=== PATIENT | female | born 1965 | race Caucasian/White ===

== ENCOUNTER 2017-01-22 00:44 | Inpatient (IN) | payer MEDICAID ==
[2017-01-22 00:44] VITALS: BMI 20.7
[2017-01-22 01:16] VITALS: PULSE 85; RESP 18; O2SAT 99
[2017-01-22] MEDS ORDERED: Alum-Mag Hydrox-Simethicone Susp (30 mL) PO STA (01:23)
--- NOTE | 2017-01-22 01:25 | ED PDOC ---
Arrival/HPI - General Chief Complaint: Abdominal Pain Time Seen by Provider: 01/22/17 01:21 Historian: Patient - History of Present Illness Narrative History of Present Illness (Text): 01/22/17 01:21 Chantel Cooney is a 51 year old female, whose past medical history includes Leukemia, on gleevac and small bowel obstruction, who presents to the emergency department complaining of generalized nausea, vomiting, and diarrhea for one day. Patient states that she took pepcid to little relief and experiences associated fatigue. Patient denies any urinary symptoms or any other complaints at this time. 01/22/17 05:19 Time/Duration: 24 hours Symptom Onset: Gradual Activities at Onset: Light Context: Home Past Medical History - Provider Review Nursing Documentation Reviewed: Yes - Cardiac Hx Cardiac Disorders: No - Pulmonary Hx Respiratory Disorders: No - Neurological Hx Neurological Disorder: No - HEENT Hx Glaucoma: Yes (bilateral eyes) - Renal Hx Renal Disorder: No - Endocrine/Metabolic Hx Endocrine Disorders: No - Hematological/Oncological Hx Leukemia: Yes - Integumentary Hx Dermatological Disorder: No - Musculoskeletal/Rheumatological Hx Musculoskeletal Disorders: No Hx Falls: No - Gastrointestinal Other/Comment: Small Bowel obstruction - Genitourinary/Gynecological Hx Genitourinary Disorders: No - Psychiatric Hx Psychophysiologic Disorder: No Hx Substance Use: No - Surgical History Hx Breast Biopsy: Yes Hx Hysterectomy: Yes Other/Comment: fibroid uterus , bilateral breast cyst removed, benign - Anesthesia Hx Anesthesia: No Hx Anesthesia Reactions: No Family/Social History - Physician Review Nursing Documentation Reviewed: Yes Family/Social History: No Known Family HX Smoking Status: Never Smoked Hx Alcohol Use: No Hx Substance Use: No Allergies/Home Meds Allergies/Adverse Reactions: Allergies No Known Allergies Allergy (Verified 01/22/17 00:55) Home Medications: Home Meds Medication Instructions Recorded Confirmed Gleevec 400 mg PO DAILY 01/22/17 01/22/17 Review of Systems - Review of Systems Constitutional: absent: Fevers, Night Sweats Eyes: absent: Vision Changes ENT: absent: Hearing Changes Respiratory: absent: SOB, Cough Cardiovascular: absent: Chest Pain Gastrointestinal: Diarrhea, Nausea (generalized), Vomiting Genitourinary Female: absent: Dysuria, Urine Output Changes Musculoskeletal: absent: Arthralgias Skin: absent: Rash, Pruritis Neurological: absent: Headache, Dizziness Endocrine: absent: Diaphoresis Hemo/Lymphatic: absent: Adenopathy Physical Exam Vital Signs Temp Pulse Resp BP Pulse Ox 01/22/17 01:16 85 18 122/77 99 01/22/17 00:56 98.0 F Temperature: Afebrile - Systems Exam Head: Present: Atraumatic, Normocephalic Pupils: Present: PERRL Extroacular Muscles: Present: EOMI Conjunctiva: Present: Normal Mouth: Present: Moist Mucous Membranes Neck: Present: Normal Range of Motion Respiratory/Chest: Present: Clear to Auscultation, Good Air Exchange. No: Respiratory Distress, Accessory Muscle Use Cardiovascular: Present: Regular Rate and Rhythm, Normal S1, S2. No: Murmurs Abdomen: Present: Tenderness (Generalized abdominal pain) Back: Present: Normal Inspection Upper Extremity: Present: Normal Inspection. No: Cyanosis, Edema Lower Extremity: Present: Normal Inspection. No: Edema Neurological: Present: GCS=15, CN II-XII Intact, Speech Normal Skin: Present: Warm, Dry, Normal Color. No: Rashes Psychiatric: Present: Alert, Oriented x 3, Normal Insight, Normal Concentration Medical Decision Making ED Course and Treatment: 01/22/17 01:26 Impression: 51 year old female complaining of generalized nausea, vomiting, and diarrhea for one day. Differential Diagnosis included but are not limited to: Plan: -- Abdomen and Pelvis with IV Contrast -- Urinalysis -- Labs -- Pepcid and Maalox -- Reassess and disposition Prior Visits: Notes and results from previous visits were reviewed. Patient last seen in the ED on 03/26/15 for abdominal pain. Patient eloped from the emergency department. Progress Notes: EKG shows NSR at 86 BPM with PACs. No acute ST changes. Interpreted by me. Labs grossly normal. 01/22/17 05:17 CT Abdomen and Pelvis With Intravenous Contrast: Dictated and Authenticated by: Urszula Marques MD FINDINGS: The liver is normal. The spleen is normal. The pancreas is normal. No gallstones. Hypoattenuating renal lesions too small to accurately characterize There is perisplenic fluid.There is free fluid in the pelvis greater than normal physiologic amount. There is free fluid in the anterior upper left pelvis. There are multiple fluid-filled dilated small bowel loops clustered in the midabdomen and pelvis extending slightly more to the left of midline. There are nondilated loops both proximally and distally. The dilated loops measures up to 3 cm in diameter and some demonstrate prominent wall and fold enhancement. There is stranding in the mesentery adjacent to the dilated small bowel loops, some of which has a tethered appearance (please see coronal image 36 through 44). There is questionable slight swirling of the mesenteric vessels axial images 90 - 110 midabdomen where there are numerous small mesenteric lymph nodes as well. A single clear-cut abrupt transition is not identified however there is change in small bowel caliber in the right lateral abdomen images 100 through 115 and also in the upper mid pelvis 100 through 117. A normal appendix is identified coronal images 51 through 59, axial series 2 images 87- 115. IMPRESSION: Dilated, fluid filled small bowel loops w nondilated loops proximally and distally. Findings supportive of small bowel obstruction, with additional findings of tethered mesentery and clustering of dilated loops raising concern for closed loop etiology. 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 Spoke to Dr. Ac. IVF infusing and reports pain improved. 01/22/17 05:36 - Lab Interpretations Lab Results: 01/22/17 02:50 01/22/17 02:50 Lab Results 01/22/17 02:50: Sodium 140, Potassium 4.9, Chloride 104, Carbon Dioxide 27, Anion Gap 14, BUN 10, Creatinine 0.9, Est GFR ( Amer) > 60, Est GFR (Non- Af Amer) > 60, Random Glucose 113 H, Calcium 9.5, Total Bilirubin 0.7, AST 34, ALT 39, Alkaline Phosphatase 53, Total Creatine Kinase 156, Troponin I 0.02, Total Protein 6.5, Albumin 4.2, Globulin 2.2, Albumin/Globulin Ratio 1.9 H, Lipase 215 01/22/17 02:50: WBC 7.6, RBC 4.05, Hgb 13.0, Hct 38.0, MCV 93.8, MCH 32.1, MCHC 34.2, RDW 13.0, Plt Count 183, MPV 8.7, Gran % 73.2 H, Lymph % (Auto) 21.2 L, [place] % (Auto) 5.0, Eos % (Auto) 0.5 L, Baso % (Auto) 0.1, Gran # 5.56, Lymph # 1.6, [place] # 0.4, Eos # 0.0, Baso # 0.01 I have reviewed the lab results: Yes - RAD Interpretation Radiology Orders: 01/22/17 01:22 ABD & PELVIS IV CONTRAST ONLY [CT] Stat - Medication Orders Current Medication Orders: Sodium Chloride (Sodium Chloride 0.9%) 1,000 mls @ 999 mls/hr IV .Q1H1M STA Stop: 01/22/17 06:20 Last Admin: 01/22/17 05:32 Dose: 999 mls/hr eMAR Start Stop Document 01/22/17 05:32 SC (Rec: 01/22/17 05:32 SC [id number]) Intravenous Solution Start Date 01/22/17 Start Time 05:32 End Date 01/22/17 End time 06:32 Total Infusion Time 60 Discontinued Medications Al Hydrox/Mg Hydrox/Simethicone (Maalox Plus 30 Ml) 30 ml PO STAT STA Stop: 01/22/17 01:24 Last Admin: 01/22/17 03:30 Dose: 30 ml Famotidine (Pepcid) 20 mg IVP STAT STA Stop: 01/22/17 01:24 Last Admin: 01/22/17 02:55 Dose: 20 mg IVP Administration Document 01/22/17 02:55 SC (Rec: 01/22/17 02:55 SC [id number]) Charges for Administration # of IVP Administrations 1 Sodium Chloride (Sodium Chloride 0.9%) 1,000 mls @ 999 mls/hr IV .Q1H1M STA Stop: 01/22/17 03:46 Last Admin: 01/22/17 02:54 Dose: 999 mls/hr eMAR Start Stop Document 01/22/17 02:54 SC (Rec: 01/22/17 02:54 SC [id number]) Intravenous Solution Start Date 01/22/17 Start Time 02:54 End Date 01/22/17 End time 03:55 Total Infusion Time 61 - Scribe Statement The provider has reviewed the documentation as recorded by the Mitaliibe Aimee Murdock Provider Scribe Attestation: All medical record entries made by the Scribe were at my direction and personally dictated by me. I have reviewed the chart and agree that the record accurately reflects my personal performance of the history, physical exam, medical decision making, and the department course for this patient. I have also personally directed, reviewed, and agree with the discharge instructions and disposition. Disposition/Present on Arrival - Present on Arrival Any Indicators Present on Arrival: No History of DVT/PE: No History of Uncontrolled Diabetes: No Urinary Catheter: No History of Decub. Ulcer: No History Surgical Site Infection Following: None - Disposition Have Diagnosis and Disposition been Completed?: Yes Diagnosis: Small bowel obstruction Disposition: HOSPITALIZED Disposition Time: 05:37 Patient Plan: Admission Condition: FAIR Forms: [employer] (Lao)
[2017-01-22] MEDS ORDERED: Sodium Chloride 0.9% 1,000 ML IV STA ×2 (02:46→05:20)
[2017-01-22 03:06] LABS: BASO # 0.01 K/mm3 (0.0-2.0); BASO % 0.1 % (0.0-3.0); EOS % 0.5 % (1.5-5.0); GRAN # 5.56 (1.4-6.5); GRAN % 73.2 % (50.0-68.0); LYMPH # 1.6 (1.2-3.4); LYMPH % 21.2 % (22.0-35.0); MEAN CELL VOLUME 93.8 fl (80.0-105.0); MEAN CORPUSCULAR HEMOGLOBIN 32.1 pg (25.0-35.0); MEAN CORPUSCULAR HGB CONC 34.2 g/dl (31.0-37.0); MEAN PLATELET VOLUME 8.7 fl (7.0-11.0); MONO # 0.4 (0.1-0.6); WHITE BLOOD COUNT 7.6 10^3/ul (4.5-11.0)
[2017-01-22 03:11] LABS: ALB/GLOB RATIO 1.9 (1.1-1.8); ALKALINE PHOSPHATASE 53 U/L (38-126); ALT/SGPT 39 U/L (7-56); AST/SGOT 34 U/L (14-36); BILIRUBIN,TOTAL 0.7 mg/dL (0.2-1.3); BLOOD UREA NITROGEN 10 mg/dL (7-21); CALCIUM 9.5 mg/dL (8.4-10.5); CARBON DIOXIDE 27 mmol/L (21-33); CHLORIDE 104 mmol/L (98-107); GFR AFRICAN-AMERICAN > 60; GLUCOSE,RANDOM 113 mg/dL (70-110); LIPASE 215 U/L (23-300); POTASSIUM 4.9 mmol/L (3.6-5.0); SODIUM 140 mmol/L (132-148); TOTAL PROTEIN 6.5 g/dL (5.8-8.3)
[2017-01-22] MEDS ORDERED: Iohexol 350 MG/100 ML VIAL ONE (03:17)
[2017-01-22 03:23] LABS: TROPONIN I 0.02 ng/mL
--- NOTE | 2017-01-22 05:10 | CT ---
EXAM: CT Abdomen and Pelvis With Intravenous Contrast EXAM DATE/TIME: 01/22/2017 1:22 AM CLINICAL HISTORY: 51 years old, female; Pain; Abdominal pain; Generalized TECHNIQUE: Axial computed tomography images of the abdomen and pelvis with intravenous contrast. All CT scans at this facility use one or more dose reduction techniques, viz.: automated exposure control; ma/kV adjustment per patient size (including targeted exams where dose is matched to indication; i.e. head); or iterative reconstruction technique. Coronal and sagittal reformatted images were created and reviewed. CONTRAST: 96 mL of OMNI 350 administered intravenously. COMPARISON: No relevant prior studies available. FINDINGS: The liver is normal. The spleen is normal. The pancreas is normal. No gallstones. Hypoattenuating renal lesions too small to accurately characterize. There is perisplenic fluid.There is free fluid in the pelvis greater than normal physiologic amount. There is free fluid in the anterior upper left pelvis. There are multiple fluid-filled dilated small bowel loops clustered in the midabdomen and pelvis extending slightly more to the left of midline. There are nondilated loops both proximally and distally. The dilated loops measures up to 3 cm in diameter and some demonstrate prominent wall and fold enhancement. There is stranding in the mesentery adjacent to the dilated small bowel loops, some of which has a tethered appearance (please see coronal image 36 through 44). There is questionable slight swirling of the mesenteric vessels axial images 90 - 110 midabdomen where there are numerous small mesenteric lymph nodes as well. A single clear-cut abrupt transition is not identified however there is change in small bowel caliber in the right lateral abdomen images 100 through 115 and also in the upper mid pelvis 100 through 117. A normal appendix is identified coronal images 51 through 59, axial series 2 images 87- 115. IMPRESSION: Dilated, fluid filled small bowel loops w nondilated loops proximally and distally. Findings supportive of small bowel obstruction, with additional findings of tethered mesentery and clustering of dilated loops raising concern for closed loop etiology.
[2017-01-22] MEDS ORDERED: Sodium Chloride 0.9% 100 ML IV SCH (06:45)
[2017-01-22] MEDS ORDERED: HYDROmorphone 0.5 mg/0.5 ml ISec IVP PRN (06:46)
--- NOTE | 2017-01-22 07:00 | CP.PCM.CON ---
History of Present Illness - History of Present Illness History of Present Illness: General Surgery- Dr. Angela 51F with past medical history of Leukemia (CML), hysterectomy presented to [facility] Emergency department for generalized abdominal pain that localized to the lower pelvis that started at 1600 on 01/21/17. Pain is described as intermittent and gas-like. She had one episode of non-bloody non- bilious vomiting after taking pepcid around midnight. She has tolerated drinking water. Last meal patient ate was plums and fruit for lunch yesterday. During encounter patient passed flatus and had a bowel movement, and currently states abdominal pain has resolved. Patient was admitted in 2014 for small bowel obstruction and was treated conservatively and was discharged home on antibiotics Denies: Fevers, Chills, Chest Pain, Shortness of breath, Nausea, diarrhea, headaches, numbness/tingling in extremities PMH: Leukemia PSH: Hysterectomy, Breast biopsy ALL: NKDA SocialHx:Denies ETOH, tobacco, or recreational drug use Meds: Gleevec Review of Systems - Review of Systems All systems: reviewed and no additional remarkable complaints except - Constitutional Constitutional: As Per HPI Past Patient History - Past Medical History & Family History Past Medical History?: Yes - Past Social History Smoking Status: Never Smoked - CARDIAC Hx Cardiac Disorders: No - PULMONARY Hx Respiratory Disorders: No - NEUROLOGICAL Hx Neurological Disorder: No - HEENT Hx Glaucoma: Yes (bilateral eyes) - RENAL Hx Chronic Kidney Disease: No - ENDOCRINE/METABOLIC Hx Endocrine Disorders: No - HEMATOLOGICAL/ONCOLOGICAL Hx Leukemia: Yes - INTEGUMENTARY Hx Dermatological Problems: No - MUSCULOSKELETAL/RHEUMATOLOGICAL Hx Musculoskeletal Disorders: No Hx Falls: No - GASTROINTESTINAL Other/Comment: Small Bowel obstruction - GENITOURINARY/GYNECOLOGICAL Hx Genitourinary Disorders: No - PSYCHIATRIC Hx Psychophysiologic Disorder: No Hx Substance Use: No - SURGICAL HISTORY Hx Breast Biopsy: Yes Hx Hysterectomy: Yes Other/Comment: fibroid uterus , bilateral breast cyst removed, benign - ANESTHESIA Hx Anesthesia: No Hx Anesthesia Reactions: No Meds Allergies/Adverse Reactions: Allergies Allergy/AdvReac Type Severity Reaction Status Date / Time No Known Allergies Allergy Verified 01/22/17 00:55 - Medications Medications: Current Medications Hydromorphone HCl (Dilaudid) 0.5 mg IVP Q4H PRN PRN Reason: Pain, severe (8-10) Sodium Chloride (Sodium Chloride 0.9%) 100 mls @ 100 mls/hr IV .Q1H CRYSTAL Ondansetron HCl (Zofran Inj) 4 mg IVP Q4 PRN PRN Reason: Nausea/Vomiting Physical Exam - Constitutional Appears: Non-toxic, No Acute Distress - Head Exam Head Exam: ATRAUMATIC - Eye Exam Eye Exam: EOMI. absent: Scleral icterus - ENT Exam ENT Exam: Mucous Membranes Moist - Respiratory Exam Respiratory Exam: NORMAL BREATHING PATTERN. absent: Accessory Muscle Use, Respiratory Distress - Cardiovascular Exam Cardiovascular Exam: +S1, +S2. absent: Bradycardia, Tachycardia - GI/Abdominal Exam GI & Abdominal Exam: Distended, Normal Bowel Sounds, Soft. absent: Firm, Guarding, Hernia, Tenderness - Extremities Exam Extremities exam: Positive for: normal inspection. Negative for: calf tenderness - Back Exam Back exam: absent: CVA tenderness (L), CVA tenderness (R) - Neurological Exam Neurological exam: Alert, Oriented x3 - Skin Skin Exam: Normal Color, Warm Results - Vital Signs Recent Vital Signs: Last Vital Signs Temp 98.0 F 01/22/17 00:56 Pulse 85 01/22/17 01:16 Resp 18 01/22/17 01:16 BP 122/77 01/22/17 01:16 Pulse Ox 99 01/22/17 01:16 - Labs Result Diagrams: 01/22/17 02:50 01/22/17 02:50 Assessment & Plan - Assessment and Plan (Free Text) Assessment: 51F pmhx CML and hysterectomy w/ abdominal pain, possible small bowel obstruction Plan: - will keep patient NPO - start on IVF - serial abdominal exams - if patient vomits will place an NGT - pain control - GI/DVT ppx - f/u labs - further recs per Dr. Julio César Cain PGY1
[2017-01-22] MEDS ORDERED: Sodium Chloride 0.9% 1,000 ML IV SCH (07:15)
[2017-01-22 07:54] VITALS: BP 131/86; TEMP 98.6
--- NOTE | 2017-01-22 11:07 | RAD ---
HISTORY: SBO COMPARISON: No prior. FINDINGS: BOWEL: Normal. No obstruction. No free air. BONES: Normal. OTHER FINDINGS: None. IMPRESSION: No active disease.
--- NOTE | 2017-01-22 11:29 | CP.PCM.HP ---
<Osiel Escalante - Last Filed: 01/22/17 11:25> History of Present Illness - History of Present Illness History of Present Illness: 51 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 Pt states the abdominal pain started earlier that day with no inciting event. Pt states the pain is described as crampy and diffuse. The pain is nonradiating. Pt reports no exacerbating or alleviating factors. Pt states she made soup for dinner which further upset her stomach. At that time, she took pepto-bismol which caused her to throw up. Emesis was nonbloody, nonbilious. Pt states she then came to the hospital. Pt had a bowel movement this morning and is passing gas. She does not currently have any pain. Pt did have an episode similar to this 1 year ago. She was admitted to the hospital and have had her diet slowly advanced, until she felt better. Denies CP, SOB, N/V/D, fever, chills, dysuria, constipation. PMH: CML PSH: 2 c-sections. Hysterectomy, Breast biopsy ALL: NKDA Social Hx:Denies ETOH, tobacco, or recreational drug use Meds: Gleevec Present on Admission - Present on Admission Any Indicators Present on Admission: No Review of Systems - Review of Systems Review of Systems: 12 point ROS as per HPI, otherwise negative. Past Patient History - Past Medical History & Family History Past Medical History?: Yes - Past Social History Smoking Status: Never Smoked - CARDIAC Hx Cardiac Disorders: No - PULMONARY Hx Respiratory Disorders: No - NEUROLOGICAL Hx Neurological Disorder: No - HEENT Hx Glaucoma: Yes (bilateral eyes) - RENAL Hx Chronic Kidney Disease: No - ENDOCRINE/METABOLIC Hx Endocrine Disorders: No - HEMATOLOGICAL/ONCOLOGICAL Hx Leukemia: Yes - INTEGUMENTARY Hx Dermatological Problems: No - MUSCULOSKELETAL/RHEUMATOLOGICAL Hx Musculoskeletal Disorders: No Hx Falls: No - GASTROINTESTINAL Other/Comment: Small Bowel obstruction - GENITOURINARY/GYNECOLOGICAL Hx Genitourinary Disorders: No - PSYCHIATRIC Hx Psychophysiologic Disorder: No Hx Substance Use: No - SURGICAL HISTORY Hx Breast Biopsy: Yes Hx Hysterectomy: Yes Other/Comment: fibroid uterus , bilateral breast cyst removed, benign - ANESTHESIA Hx Anesthesia: No Hx Anesthesia Reactions: No Meds Allergies/Adverse Reactions: Allergies Allergy/AdvReac Type Severity Reaction Status Date / Time No Known Allergies Allergy Verified 01/22/17 00:55 Physical Exam - Constitutional Appears: Non-toxic, No Acute Distress - Head Exam Head Exam: ATRAUMATIC, NORMAL INSPECTION, NORMOCEPHALIC - Eye Exam Eye Exam: EOMI, Normal appearance - ENT Exam ENT Exam: Mucous Membranes Moist, Normal Exam - Respiratory Exam Respiratory Exam: Clear to Auscultation Bilateral, NORMAL BREATHING PATTERN - Cardiovascular Exam Cardiovascular Exam: RRR, +S1, +S2 - GI/Abdominal Exam GI & Abdominal Exam: Normal Bowel Sounds, Soft. absent: Distended, Guarding, Tenderness - Extremities Exam Extremities exam: Positive for: normal inspection. Negative for: calf tenderness, pedal edema - Neurological Exam Neurological exam: Alert, CN II-XII Intact, Oriented x3 - Psychiatric Exam Psychiatric exam: Normal Affect, Normal Mood - Skin Skin Exam: Intact, Normal Color, Warm Results - Vital Signs Recent Vital Signs: Last Vital Signs Temp 98.6 F 01/22/17 07:07 Pulse 85 01/22/17 01:16 Resp 18 01/22/17 07:07 BP 131/86 01/22/17 07:07 Pulse Ox 99 01/22/17 01:16 - Labs Result Diagrams: 01/22/17 02:50 01/22/17 02:50 Labs: Laboratory Results - last 24 hr 01/22/17 07:00 Lactic Acid 1.0 Assessment & Plan - Assessment and Plan (Free Text) Plan: 51 y/o F with PMH of CML presenting with small bowel obstruction. CT of abdomen/ pelvis is consistent with small bowel obstruction. Upon evaluation with surgical team, there is no surgical intervention at this time. Pt will have diet advanced slowly. Will continue to monitor. 1. SBO Soft diet, advance as tolerated No surgical intervention Monitor for nausea or vomiting 2. Hx of CML Continue home Gleevac 3. PPX No protonix needed Pt is ambulatory, no DVT ppx needed Boris, PGY-2 <David Garcia - Last Filed: 01/22/17 13:22> Results - Vital Signs Recent Vital Signs: Last Vital Signs Temp 98.6 F 01/22/17 07:07 Pulse 85 01/22/17 01:16 Resp 18 01/22/17 07:07 BP 131/86 01/22/17 07:07 Pulse Ox 99 01/22/17 01:16 - Labs Result Diagrams: 01/22/17 02:50 01/22/17 02:50 Labs: Laboratory Results - last 24 hr 01/22/17 01/22/17 06:10 07:00 Lactic Acid 1.0 Procalcitonin < 0.05 L Attending/Attestation - Attestation I have personally seen and examined this patient.: Yes I have fully participated in the care of the patient.: Yes I have reviewed all pertinent clinical information: Yes Notes (Text): 01/22/17 13:20 Patient was seen and examined with medical management specialist. Agreed with resident assessment and plan. Patient abdominal pain , nausea and vomiting has resolved.Abdominal X ray is negative for any sign of obstruction. Patient is tolerated liquid diet, we will advance to soft mechanical diet. If patient will be able to tolerate soft mechanical diet, she can be discharged home. Management plan was discussed in detail with patient Education was provided.
[2017-01-22] MEDS ORDERED: Oxycodone/Acetaminophen 5/325 mg Tab PO PRN (13:03)
--- NOTE | 2017-01-22 14:33 | CP.PCM.DIS ---
<Osiel Escalante - Last Filed: 01/22/17 14:29> Provider - Provider Date of Admission: 01/22/17 05:31 Attending physician: David Garcia MD Primary care physician: Darius Brown MD Consults: Surgery - Dr. Angela Time Spent in preparation of Discharge (in minutes): 45 Diagnosis - Discharge Diagnosis (1) Small bowel obstruction Status: Resolved Hospital Course - Lab Results Lab Results: Most Recent Lab Values WBC 7.6 10^3/ul (4.5-11.0) 01/22/17 02:50 RBC 4.05 10^6/uL (3.5-6.1) 01/22/17 02:50 Hgb 13.0 g/dL (12.0-16.0) 01/22/17 02:50 Hct 38.0 % (36.0-48.0) 01/22/17 02:50 MCV 93.8 fl (80.0-105.0) 01/22/17 02:50 MCH 32.1 pg (25.0-35.0) 01/22/17 02:50 MCHC 34.2 g/dl (31.0-37.0) 01/22/17 02:50 RDW 13.0 % (11.5-14.5) 01/22/17 02:50 Plt Count 183 10^3/uL (120.0-450.0) 01/22/17 02:50 MPV 8.7 fl (7.0-11.0) 01/22/17 02:50 Gran % 73.2 % (50.0-68.0) H 01/22/17 02:50 Lymph % (Auto) 21.2 % (22.0-35.0) L 01/22/17 02:50 Spencer % (Auto) 5.0 % (1.0-6.0) 01/22/17 02:50 Eos % (Auto) 0.5 % (1.5-5.0) L 01/22/17 02:50 Baso % (Auto) 0.1 % (0.0-3.0) 01/22/17 02:50 Gran # 5.56 (1.4-6.5) 01/22/17 02:50 Lymph # 1.6 (1.2-3.4) 01/22/17 02:50 Spencer # 0.4 (0.1-0.6) 01/22/17 02:50 Eos # 0.0 (0.0-0.7) 01/22/17 02:50 Baso # 0.01 K/mm3 (0.0-2.0) 01/22/17 02:50 Sodium 140 mmol/L (132-148) 01/22/17 02:50 Potassium 4.9 mmol/L (3.6-5.0) 01/22/17 02:50 Chloride 104 mmol/L (98-107) 01/22/17 02:50 Carbon Dioxide 27 mmol/L (21-33) 01/22/17 02:50 Anion Gap 14 (-20) 01/22/17 02:50 BUN 10 mg/dL (7-21) 01/22/17 02:50 Creatinine 0.9 mg/dL (0.7-1.2) 01/22/17 02:50 Est GFR ( Amer) > 60 01/22/17 02:50 Est GFR (Non-Af Amer) > 60 01/22/17 02:50 Random Glucose 113 mg/dL (70-110) H 01/22/17 02:50 Lactic Acid 1.0 mmol/L (0.7-2.1) 01/22/17 07:00 Calcium 9.5 mg/dL (8.4-10.5) 01/22/17 02:50 Total Bilirubin 0.7 mg/dL (0.2-1.3) 01/22/17 02:50 AST 34 U/L (14-36) 01/22/17 02:50 ALT 39 U/L (7-56) 01/22/17 02:50 Alkaline Phosphatase 53 U/L (38-126) 01/22/17 02:50 Total Creatine Kinase 156 U/L (35-230) 01/22/17 02:50 Troponin I 0.02 ng/mL 01/22/17 02:50 Total Protein 6.5 g/dL (5.8-8.3) 01/22/17 02:50 Albumin 4.2 g/dL (3.0-4.8) 01/22/17 02:50 Globulin 2.2 gm/dL 01/22/17 02:50 Albumin/Globulin Ratio 1.9 (1.1-1.8) H 01/22/17 02:50 Lipase 215 U/L (23-300) 01/22/17 02:50 Procalcitonin < 0.05 NG/ML (0.19-0.49) L 01/22/17 06:10 - Hospital Course Hospital Course: 51 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 Pt states the abdominal pain started earlier that day with no inciting event. Pt states the pain is described as crampy and diffuse. The pain is nonradiating. Pt reports no exacerbating or alleviating factors. Pt states she made soup for dinner which further upset her stomach. At that time, she took pepto-bismol which caused her to throw up. Emesis was nonbloody, nonbilious. Pt was found to have small bowel obstruction as per CT scan of abdomen/pelvis. Pt stated she felt better as the day progressed and had her diet advanced as well. Pt received abdominal x-rays, which showed no signs of obstruction or acute pathology. Pt tolerated her soft diet and was advised to continue the soft diet until the next day when she should slowly advance her diet herself. Pt told to follow up with her PMD and continue her home medication. Pt was discharged the same day of admission. Discharge Exam - Head Exam Head Exam: ATRAUMATIC, NORMAL INSPECTION, NORMOCEPHALIC Discharge Plan - Follow Up Plan Condition: FAIR Disposition: HOME/ ROUTINE Instructions: Acute Abdominal Pain (DC), Bowel Obstruction (DC) Additional Instructions: Continue Gleevac at home Follow up with PMD in 1 week Follow up with Forensic Examiner Referrals: Darius Brown MD [Primary Care Provider] - <David Garcia - Last Filed: 01/23/17 10:26> Provider - Provider Date of Admission: 01/22/17 05:31 Attending physician: David Garcia MD Primary care physician: Darius Brown MD Hospital Course - Lab Results Lab Results: Most Recent Lab Values WBC 7.6 10^3/ul (4.5-11.0) 01/22/17 02:50 RBC 4.05 10^6/uL (3.5-6.1) 01/22/17 02:50 Hgb 13.0 g/dL (12.0-16.0) 01/22/17 02:50 Hct 38.0 % (36.0-48.0) 01/22/17 02:50 MCV 93.8 fl (80.0-105.0) 01/22/17 02:50 MCH 32.1 pg (25.0-35.0) 01/22/17 02:50 MCHC 34.2 g/dl (31.0-37.0) 01/22/17 02:50 RDW 13.0 % (11.5-14.5) 01/22/17 02:50 Plt Count 183 10^3/uL (120.0-450.0) 01/22/17 02:50 MPV 8.7 fl (7.0-11.0) 01/22/17 02:50 Gran % 73.2 % (50.0-68.0) H 01/22/17 02:50 Lymph % (Auto) 21.2 % (22.0-35.0) L 01/22/17 02:50 Spencer % (Auto) 5.0 % (1.0-6.0) 01/22/17 02:50 Eos % (Auto) 0.5 % (1.5-5.0) L 01/22/17 02:50 Baso % (Auto) 0.1 % (0.0-3.0) 01/22/17 02:50 Gran # 5.56 (1.4-6.5) 01/22/17 02:50 Lymph # 1.6 (1.2-3.4) 01/22/17 02:50 Spencer # 0.4 (0.1-0.6) 01/22/17 02:50 Eos # 0.0 (0.0-0.7) 01/22/17 02:50 Baso # 0.01 K/mm3 (0.0-2.0) 01/22/17 02:50 Sodium 140 mmol/L (132-148) 01/22/17 02:50 Potassium 4.9 mmol/L (3.6-5.0) 01/22/17 02:50 Chloride 104 mmol/L (98-107) 01/22/17 02:50 Carbon Dioxide 27 mmol/L (21-33) 01/22/17 02:50 Anion Gap 14 (10-20) 01/22/17 02:50 BUN 10 mg/dL (7-21) 01/22/17 02:50 Creatinine 0.9 mg/dL (0.7-1.2) 01/22/17 02:50 Est GFR ( Amer) > 60 01/22/17 02:50 Est GFR (Non-Af Amer) > 60 01/22/17 02:50 Random Glucose 113 mg/dL (70-110) H 01/22/17 02:50 Lactic Acid 1.0 mmol/L (0.7-2.1) 01/22/17 07:00 Calcium 9.5 mg/dL (8.4-10.5) 01/22/17 02:50 Total Bilirubin 0.7 mg/dL (0.2-1.3) 01/22/17 02:50 AST 34 U/L (14-36) 01/22/17 02:50 ALT 39 U/L (7-56) 01/22/17 02:50 Alkaline Phosphatase 53 U/L (38-126) 01/22/17 02:50 Total Creatine Kinase 156 U/L (35-230) 01/22/17 02:50 Troponin I 0.02 ng/mL 01/22/17 02:50 Total Protein 6.5 g/dL (5.8-8.3) 01/22/17 02:50 Albumin 4.2 g/dL (3.0-4.8) 01/22/17 02:50 Globulin 2.2 gm/dL 01/22/17 02:50 Albumin/Globulin Ratio 1.9 (1.1-1.8) H 01/22/17 02:50 Lipase 215 U/L (23-300) 01/22/17 02:50 Procalcitonin < 0.05 NG/ML (0.19-0.49) L 01/22/17 06:10 Attending/Attestation - Attestation I have personally seen and examined this patient.: Yes I have fully participated in the care of the patient.: Yes I have reviewed all pertinent clinical information, including history, physical exam and plan: Yes Notes (Text): 01/23/17 10:25 Patient was seen and examined with medical malpractice paralegal. Agreed with resident assessment and plan. Patient abdominal pain , nausea and vomiting has resolved.Abdominal X ray is negative for any sign of obstruction. Patient had 2 bowel movement today, she is tolerating soft mechanical diet at the time of discharge. Management plan was discussed in detail with patient Education was provided.
--- NOTE | 2017-01-23 14:39 | CARD ---
APPROVED REPORT EKG Measurement Heart [id number] CT [id number] <Conclusion> Sinus rhythm with premature atrial complexes Possible Left atrial enlargement Borderline ECG
[2017-01-24] MEDS ORDERED: Pneumococcal 23-Valent Vaccine IM ONE (10:00)
[2017-01-24] MEDS ORDERED: Influenza Vaccine 60 mcg/0.5 mL SYR (4YR UP) IM ONE (10:00)
== END 2017-01-22 16:24 | disposition home or self-care (01) | DRG 181 ==
LOC: ED 00:44 → ERH 05:31 → 3RNO 06:48
PROVIDERS: ADMIT Internal Medicine; ATTEND Internal Medicine
DX: K56.609 Unspecified intestinal obstruction, unspecified as to partial versus complete obstruction (principal); H40.9 Unspecified glaucoma; Z85.6 Personal history of leukemia; Z79.899 Other long term (current) drug therapy

== ENCOUNTER 2017-04-30 01:10 | Emergency (ER) | payer MEDICAID ==
[2017-04-30 01:11] VITALS: BMI 20.7
[2017-04-30 01:27] VITALS: RESP 18; TEMP 98.2; O2SAT 100
[2017-04-30] MEDS ORDERED: Sodium Chloride 0.9% 1,000 ML IV SCH (02:00)
--- NOTE | 2017-04-30 02:03 | ED PDOC ---
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 Patient states she always has diarrhea (described as soft stool per patient), but hasn't had watery diarrhea recently. Patient states she had a lot of watery diarrhea and wanted to come in for IV fluid hydration. PMH: CML PSH: 2 c-sections. Hysterectomy, Breast biopsy ALL: NKDA Social Hx:Denies ETOH, tobacco, or recreational drug use Meds: Gleevec (Mary Lou Castillo) Past Medical History - Provider Review Nursing Documentation Reviewed: Yes - Cardiac Hx Cardiac Disorders: No - Pulmonary Hx Respiratory Disorders: No - Neurological Hx Neurological Disorder: No - HEENT Hx Glaucoma: Yes (bilateral eyes) - Renal Hx Renal Disorder: No - Endocrine/Metabolic Hx Endocrine Disorders: No - Hematological/Oncological Hx Blood Disorders: Yes Hx Leukemia: Yes - Integumentary Hx Dermatological Disorder: No - Musculoskeletal/Rheumatological Hx Musculoskeletal Disorders: No Hx Falls: No - Gastrointestinal Other/Comment: Small Bowel obstruction - Genitourinary/Gynecological Hx Genitourinary Disorders: No - Psychiatric Hx Psychophysiologic Disorder: No Hx Substance Use: No - Surgical History Hx Breast Biopsy: Yes Hx Hysterectomy: Yes Other/Comment: fibroid uterus , bilateral breast cyst removed, benign - Anesthesia Hx Anesthesia: No Hx Anesthesia Reactions: No <Mary Lou Castillo - Last Filed: 04/30/17 03:00> Family/Social History - Physician Review Nursing Documentation Reviewed: Yes Family/Social History: Unknown Family HX Smoking Status: Never Smoked Hx Alcohol Use: No Hx Substance Use: No <Mary Lou Castillo - Last Filed: 04/30/17 03:00> Allergies/Home Meds <Mary Lou Castillo - Last Filed: 04/30/17 03:00> <Jc Hardy DO - Last Filed: 04/30/17 06:09> Allergies/Adverse Reactions: Allergies No Known Allergies Allergy (Verified 04/30/17 01:21) Home Medications: Home Meds Medication Instructions Recorded Confirmed Gleevec 400 mg PO DAILY 01/22/17 04/30/17 Review of Systems - Review of Systems Constitutional: Fatigue Eyes: absent: Vision Changes, Photophobia, Eye Pain ENT: Normal. absent: Hearing Changes, Tinnitus, TMJ Pain Respiratory: Normal. absent: SOB, Cough, Sputum, Wheezing Cardiovascular: Normal. absent: Chest Pain, Palpitations, Edema, Orthopnea Gastrointestinal: Normal. absent: Abdominal Pain, Stool Changes, Constipation Genitourinary Female: Normal. absent: Dysuria, Frequency, Hematuria Musculoskeletal: Normal. absent: Arthralgias, Back Pain, Neck Pain Skin: Normal. absent: Rash, Pruritis, Skin Lesions Neurological: Normal. absent: Headache, Dizziness, Focal Weakness Endocrine: Normal. absent: Diaphoresis, Polyuria, Polydipsia Hemo/Lymphatic: Normal. absent: Adenopathy, Easy Bleeding Psychiatric: Normal. absent: Anxiety, Depression, Suicidal Ideation <Mary Lou Castillo - Last Filed: 04/30/17 03:00> - Physician Review All systems were reviewed & negative as marked: Yes <Antony WALLISJc - Last Filed: 04/30/17 06:09> Physical Exam Temperature: Afebrile Blood Pressure: Normal Pulse: Regular Respiratory Rate: Normal Appearance: Positive for: Comfortable Mental Status: Positive for: Alert and Oriented X 3 - Systems Exam Head: Present: Atraumatic, Normocephalic Pupils: Present: PERRL Extroacular Muscles: Present: EOMI Conjunctiva: Present: Normal. No: Injected, Icteric Mouth: Present: Dry Nose (External): Present: Atraumatic. No: Abrasion, Contusion, Laceration Neck: Present: Normal Range of Motion, Trachea Midline. No: MIDLINE TENDERNESS , JVD Respiratory/Chest: Present: Clear to Auscultation, Good Air Exchange. No: Respiratory Distress Cardiovascular: Present: Regular Rate and Rhythm, Normal S1, S2. No: Murmurs Abdomen: Present: Normal Bowel Sounds. No: Tenderness, Distention, Peritoneal Signs Back: Present: Normal Inspection. No: CVA Tenderness, Midline Tenderness Upper Extremity: Present: Normal Inspection, Normal ROM, NORMAL PULSES, Capillary Refill < 2s. No: Cyanosis, Edema Lower Extremity: Present: Normal Inspection, NORMAL PULSES, Normal ROM, Capillary Refill < 2 s. No: Edema, CALF TENDERNESS Neurological: Present: GCS=15, CN II-XII Intact Skin: Present: Warm, Dry, Pale Psychiatric: Present: Alert, Oriented x 3, Normal Insight, Normal Concentration <Mary Lou Castillo - Last Filed: 04/30/17 03:00> Vital Signs Reviewed: Yes <Jc Hardy DO - Last Filed: 04/30/17 06:09> Vital Signs Temp Pulse Resp BP Pulse Ox 04/30/17 03:00 98 H 18 112/82 100 04/30/17 01:27 98.2 F 96 H 18 111/69 100 Medical Decision Making <Mary Lou Castillo - Last Filed: 04/30/17 03:00> <Jc Hardy DO - Last Filed: 04/30/17 06:09> ED Course and Treatment: 04/30/17 02:23 CBC CMP, Mg, Ph IVF NS 100cc/hr (Mary Lou Castillo) 04/30/17 02:14 51 year old female presents to the Emergency department for generalized weakness and watery diarrhea. In agreement with resident note, which includes further HPI details. Patient was seen and evaluated with resident, came up with plan and treatment together. (Jc Hardy DO) - Lab Interpretations Lab Results: 04/30/17 02:07 04/30/17 02:07 Lab Results 04/30/17 02:07: Sodium 135, Potassium 3.7, Chloride 101, Carbon Dioxide 25, Anion Gap 13, BUN 8, Creatinine 0.9, Est GFR ( Amer) > 60, Est GFR (Non- Af Amer) > 60, Random Glucose 121 H, Calcium 9.5, Phosphorus 2.9, Magnesium 1.8 , Total Bilirubin 0.4, AST 34, ALT 39, Alkaline Phosphatase 49, Total Protein 6.2, Albumin 3.9, Globulin 2.3, Albumin/Globulin Ratio 1.7 04/30/17 02:07: WBC 4.1 L D, RBC 3.54, Hgb 11.3 L, Hct 33.9 L, MCV 95.8, MCH 31.9, MCHC 33.3, RDW 13.2, Plt Count 123, MPV 9.4, Gran % 76.9 H, Lymph % (Auto ) 14.3 L, Lucas % (Auto) 8.4 H, Eos % (Auto) 0.2 L, Baso % (Auto) 0.2, Gran # 3.13, Lymph # 0.6 L, Lucas # 0.3, Eos # 0.0, Baso # 0.01 - Medication Orders Current Medication Orders: Discontinued Medications Sodium Chloride (Sodium Chloride 0.9%) 1,000 mls @ 100 mls/hr IV .Q10H [facility] Last Admin: 04/30/17 02:00 Dose: 100 mls/hr eMAR Start Stop Document 04/30/17 02:00 AD (Rec: 04/30/17 03:23 AD [id number]) Intravenous Solution Start Date 04/30/17 Start Time 02:00 <Mary Lou Castillo - Last Filed: 04/30/17 03:00> - PA / PSYCHOLOGICAL OPERATIONS SPECIALIST / Resident Statement FRAN has reviewed & agrees with the documentation as recorded. FRAN has examined the patient and agrees with the treatment plan. - Scribe Statement The provider has reviewed the documentation as recorded by the Scribe <Jc Hardy DO - Last Filed: 04/30/17 06:09> - Scribe Statement Kaylie Awad. All medical record entries made by the Scribshravan were at my direction and personally dictated by me. I have reviewed the chart and agree that the record accurately reflects my personal performance of the history, physical exam, medical decision making, and the department course for this patient. I have also personally directed, reviewed, and agree with the discharge instructions and disposition. (Jc Hardy DO) Disposition/Present on Arrival - Present on Arrival Any Indicators Present on Arrival: No History of DVT/PE: No History of Uncontrolled Diabetes: No Urinary Catheter: No History of Decub. Ulcer: No History Surgical Site Infection Following: None - Disposition Have Diagnosis and Disposition been Completed?: No Disposition Time: 03:02 Patient Plan: Discharge <Mary Lou Castillo - Last Filed: 04/30/17 03:00> <Jc Hardy DO - Last Filed: 04/30/17 06:09> - Disposition Diagnosis: Dehydration Disposition: HOME/ ROUTINE Condition: IMPROVED Additional Instructions: return to ED for severe dehydration remain hydrated by drinking fluids, replacing electrolytes follow up with primary care doctor in one week Forms: [employer] ([place])
[2017-04-30 02:43] LABS: ALB/GLOB RATIO 1.7 (1.1-1.8); ALBUMIN 3.9 g/dL (3.0-4.8); ALT/SGPT 39 U/L (7-56); AST/SGOT 34 U/L (14-36); BLOOD UREA NITROGEN 8 mg/dL (7-21); CALCIUM 9.5 mg/dL (8.4-10.5); GFR AFRICAN-AMERICAN > 60; GFR NON-AFRICAN AMERICAN > 60; MAGNESIUM 1.8 mg/dL (1.7-2.2)
[2017-04-30 02:52] LABS: BASO # 0.01 K/mm3 (0.0-2.0); BASO % 0.2 % (0.0-3.0); EOS % 0.2 % (1.5-5.0); GRAN # 3.13 (1.4-6.5); GRAN % 76.9 % (50.0-68.0); HEMOGLOBIN 11.3 g/dL (12.0-16.0); LYMPH # 0.6 (1.2-3.4); LYMPH % 14.3 % (22.0-35.0); MEAN CELL VOLUME 95.8 fl (80.0-105.0); MEAN CORPUSCULAR HEMOGLOBIN 31.9 pg (25.0-35.0); MEAN CORPUSCULAR HGB CONC 33.3 g/dl (31.0-37.0); MEAN PLATELET VOLUME 9.4 fl (7.0-11.0); MONO # 0.3 (0.1-0.6); MONO % 8.4 % (1.0-6.0); RBC 3.54 10^6/uL (3.5-6.1); RED CELL DISTRIBUTION WIDTH 13.2 % (11.5-14.5); WHITE BLOOD COUNT 4.1 10^3/ul (4.5-11.0)
[2017-04-30 04:24] VITALS: BP 112/82; PULSE 98
== END 2017-04-30 04:35 | disposition home or self-care (01) ==
LOC: ED 01:10
DX: E86.0 Dehydration (principal)
CPT/HCPCS: 80053; 83735; 84100; 85025; 99284; J7040

== ENCOUNTER 2017-11-19 10:22 | Emergency (ER) | payer MEDICAID ==
[2017-11-19 10:40] VITALS: RESP 18
[2017-11-19 10:42] VITALS: BMI 23.6
[2017-11-19] MEDS ORDERED: Sodium Chloride 0.9% 1,000 ML IV STA (10:52)
--- NOTE | 2017-11-19 11:07 | ED PDOC ---
Arrival/HPI - General Chief Complaint: Flu-like Symptoms Time Seen by Provider: 11/19/17 10:44 Historian: Patient - History of Present Illness Narrative History of Present Illness (Text): 11/19/17 11:04 52yr old female presents today with generalized weakness. pt states she woke up today feeling weak, having heart palpitations. pt states she feels as if there is a pressure in her head. pt denies trauma or injury. pt denies chest pain at present time. pt c/o dizziness. pt denies abdominal pain. no urinary symptoms. no vomiting. pt states she had 2 episodes of diarrhea yesterday. pt also c/o chronic sinus pressure and nasal congestion. pt denies fever/chills. no other complaints. Past Medical History - Provider Review Nursing Documentation Reviewed: Yes - Travel History Have you recently traveled outside [place] w/in the past 3 mons?: No - Tetanus Immunization Tetanus Immunization: Unknown - Cardiac Hx Cardiac Disorders: No - Pulmonary Hx Respiratory Disorders: No - Neurological Hx Neurological Disorder: No - HEENT Hx Glaucoma: Yes (bilateral eyes) - Renal Hx Renal Disorder: No - Endocrine/Metabolic Hx Endocrine Disorders: No - Hematological/Oncological Hx Blood Disorders: Yes Hx Leukemia: Yes - Integumentary Hx Dermatological Disorder: No - Musculoskeletal/Rheumatological Hx Musculoskeletal Disorders: No Hx Falls: No - Gastrointestinal Other/Comment: Small Bowel obstruction - Genitourinary/Gynecological Hx Genitourinary Disorders: No - Psychiatric Hx Psychophysiologic Disorder: No Hx Substance Use: No - Surgical History Hx Breast Biopsy: Yes Hx Hysterectomy: Yes Other/Comment: fibroid uterus , bilateral breast cyst removed, benign - Anesthesia Hx Anesthesia: No Hx Anesthesia Reactions: No Family/Social History - Physician Review Nursing Documentation Reviewed: Yes Family/Social History: Unknown Family HX Smoking Status: Never Smoked Hx Alcohol Use: No Hx Substance Use: No Allergies/Home Meds Allergies/Adverse Reactions: Allergies No Known Allergies Allergy (Verified 04/30/17 01:21) Home Medications: Home Meds Medication Instructions Recorded Confirmed Gleevec 400 mg PO DAILY 01/22/17 04/30/17 Review of Systems - Review of Systems Constitutional: Fatigue. absent: Fevers Eyes: absent: Vision Changes, Eye Pain ENT: Sinus Congestion. absent: Sore Throat Respiratory: absent: SOB, Cough Cardiovascular: Palpitations. absent: Chest Pain Gastrointestinal: Diarrhea. absent: Abdominal Pain, Constipation, Nausea, Vomiting Genitourinary Female: absent: Dysuria, Frequency, Hematuria Musculoskeletal: absent: Arthralgias, Back Pain, Neck Pain Skin: absent: Rash, Pruritis Neurological: Headache, Dizziness. absent: Focal Weakness, Gait Changes, Speech Changes Psychiatric: absent: Anxiety, Depression, Suicidal Ideation Physical Exam Vital Signs Reviewed: Yes Vital Signs Temp Pulse Resp BP Pulse Ox 11/19/17 14:56 97 H 18 142/88 100 11/19/17 10:39 98.0 F 97 H 18 144/70 100 Temperature: Afebrile Blood Pressure: Normal Pulse: Tachycardic Respiratory Rate: Normal Appearance: Positive for: Well-Appearing, Non-Toxic, Comfortable Pain Distress: None Mental Status: Positive for: Alert and Oriented X 3 - Systems Exam Head: Present: Atraumatic Pupils: Present: PERRL Extroacular Muscles: Present: EOMI Mouth: Present: Moist Mucous Membranes Nose (Internal): Present: Normal Inspection Neck: Present: Normal Range of Motion, Trachea Midline. No: Lymphadenopathy Respiratory/Chest: Present: Clear to Auscultation, Good Air Exchange. No: Respiratory Distress, Accessory Muscle Use Cardiovascular: Present: Regular Rate and Rhythm, Normal S1, S2. No: Murmurs Abdomen: No: Tenderness, Distention, Peritoneal Signs, Rebound, Guarding Back: Present: Normal Inspection Upper Extremity: Present: Normal ROM Lower Extremity: Present: Normal ROM Neurological: Present: GCS=15, Speech Normal Skin: Present: Warm, Dry, Normal Color. No: Rashes Psychiatric: Present: Alert, Oriented x 3 Medical Decision Making ED Course and Treatment: 11/19/17 11:22 52yr old female with CML presenting with dizziness and generalized weakness, near syncope, palpitations. cbc: wnl cmp: wnl trop: wnl ekg; normal sinus rhythm at 96 bpm normal axis normal intervals no ST elevations cxr; no infiltrate no effusion no cardiomegaly CT head:FINDINGS: HEMORRHAGE: No intracranial hemorrhage. BRAIN: No mass effect or edema. No atrophy or chronic microvascular ischemic changes. VENTRICLES: Unremarkable. No hydrocephalus. CALVARIUM: Unremarkable. PARANASAL SINUSES: Unremarkable as visualized. No significant inflammatory changes. MASTOID AIR CELLS: Unremarkable as visualized. No inflammatory changes. OTHER FINDINGS: None. IMPRESSION: No acute findings pt given asa, meclizine and tylenol 11/19/17 14:44 Patient reassessment: Patient complaining of a pressure sensation in the head states she feels generally weak and dizzy with ambulation. pt with slightly elevated BP in er. case discussed with dr. hoskins will admit observational status for dizziness, weakness, near syncope. will add TSH, T4 impression; dizziness, weakness, near syncope, palpitations admit observational status Reassessment Condition: Re-examined, Unchanged - Lab Interpretations Lab Results: 11/19/17 11:55 11/19/17 11:55 Lab Results 11/19/17 13:00: Urine Color Straw, Urine Appearance Clear, Urine pH 6.0, Ur Specific Morris <= 1.005, Urine Protein Negative, Urine Glucose (UA) Negative, Urine Ketones Negative, Urine Blood Negative, Urine Nitrate Negative, Urine Bilirubin Negative, Urine Urobilinogen 0.2, Ur Leukocyte Esterase Negative 11/19/17 11:55: WBC 6.6 D, RBC 3.85, Hgb 12.1, Hct 35.8 L, MCV 93.0, MCH 31.4, MCHC 33.8, RDW 12.8, Plt Count 179, MPV 9.4, Gran % 81.3 H, Lymph % (Auto) 11.9 L, Terrell % (Auto) 6.4 H, Eos % (Auto) 0.2 L, Baso % (Auto) 0.2, Gran # 5.35, Lymph # (Auto) 0.8 L, Terrell # (Auto) 0.4, Eos # (Auto) 0.0, Baso # (Auto) 0.01 11/19/17 11:55: Sodium 140, Potassium 4.5, Chloride 102, Carbon Dioxide 26, Anion Gap 17, BUN 10, Creatinine 0.8, Est GFR ( Amer) > 60, Est GFR (Non- Af Amer) > 60, Random Glucose 98, Calcium 9.8, Total Bilirubin 0.5, AST 36, ALT 32, Alkaline Phosphatase 60, Lactate Dehydrogenase 620, Total Creatine Kinase 188, Troponin I < 0.01 D, Total Protein 6.9, Albumin 4.5, Globulin 2.4, Albumin /Globulin Ratio 1.8, Lipase 197 11/19/17 11:36: Urine Color Yellow, Urine Appearance Clear, Urine pH 6.0, Ur Specific Morris <= 1.005, Urine Protein Negative, Urine Glucose (UA) Negative, Urine Ketones Negative, Urine Blood Trace-intact H, Urine Nitrate Negative, Urine Bilirubin Negative, Urine Urobilinogen 0.2, Ur Leukocyte Esterase Negative , Urine RBC 2 - 5, Urine WBC 0 - 2, Ur Epithelial Cells 4 - 5, Urine Bacteria Mod - RAD Interpretation Radiology Orders: 11/19/17 10:52 CHEST PORTABLE [RAD] Stat 11/19/17 12:20 HEAD W/O CONTRAST [CT] Stat - Medication Orders Current Medication Orders: Discontinued Medications Acetaminophen (Tylenol 325mg Tab) 975 mg PO STAT STA Stop: 11/19/17 14:47 Aspirin (Aspirin) 325 mg PO STAT STA Stop: 11/19/17 14:45 Sodium Chloride (Sodium Chloride 0.9%) 1,000 mls @ 999 mls/hr IV .Q1H1M STA Stop: 11/19/17 11:52 Last Admin: 11/19/17 12:16 Dose: 999 mls/hr eMAR Start Stop Document 11/19/17 12:16 (Rec: 11/19/17 12:16 [id number]) Intravenous Solution Start Date 11/19/17 Start Time 12:16 Meclizine HCl (Antivert) 12.5 mg PO STAT STA Stop: 11/19/17 14:46 Disposition/Present on Arrival - Present on Arrival Any Indicators Present on Arrival: No History of DVT/PE: No History of Uncontrolled Diabetes: No Urinary Catheter: No History of Decub. Ulcer: No History Surgical Site Infection Following: None - Disposition Have Diagnosis and Disposition been Completed?: Yes Diagnosis: Dizziness, Palpitations, Weakness Disposition: HOSPITALIZED Disposition Time: 14:59 Patient Plan: Observation Condition: FAIR Discharge Instructions (ExitCare): Weakness (ED) Referrals: Darius Brown MD [Primary Care Provider] - Follow up with primary Forms: [employer] ([place]yr[place]z)
--- NOTE | 2017-11-19 11:27 | RAD ---
Date of service: 11/19/2017 HISTORY: palpitations COMPARISON: No prior. FINDINGS: LUNGS: No active pulmonary disease. PLEURA: No significant pleural effusion identified, no pneumothorax apparent. CARDIOVASCULAR: Normal. OSSEOUS STRUCTURES: No significant abnormalities. VISUALIZED UPPER ABDOMEN: Normal. OTHER FINDINGS: None. IMPRESSION: No active disease.
[2017-11-19 11:50] LABS: URINE BILIRUBIN NEGATIVE (NEGATIVE); URINE BLOOD TRACE-INTACT (NEGATIVE); URINE GLUCOSE (UA) NEGATIVE (NEGATIVE); URINE LEUKOCYTE ESTERASE NEGATIVE Leu/uL (NEGATIVE); URINE PROTEIN NEGATIVE mg/dL (<30 mg/dL); URINE UROBILINOGEN 0.2 E.U./dL (<1 E.U./dL)
[2017-11-19 11:51] LABS: URINE APPEARANCE CLEAR (CLEAR); URINE COLOR YELLOW (YELLOW)
[2017-11-19 11:56] LABS: URINE BACTERIA MOD (NEG); URINE WBC 0 - 2 /hpf (0-6)
[2017-11-19 12:26] LABS: BASO # 0.01 K/mm3 (0.0-2.0); BASO % 0.2 % (0.0-3.0); EOS % 0.2 % (1.5-5.0); GRAN # 5.35 (1.4-6.5); GRAN % 81.3 % (50.0-68.0); HEMOGLOBIN 12.1 g/dL (12.0-16.0); LYMPH # 0.8 (1.2-3.4); LYMPH % 11.9 % (22.0-35.0); MEAN CORPUSCULAR HEMOGLOBIN 31.4 pg (25.0-35.0); MEAN CORPUSCULAR HGB CONC 33.8 g/dl (31.0-37.0); MEAN PLATELET VOLUME 9.4 fl (7.0-11.0); MONO # 0.4 (0.1-0.6); MONO % 6.4 % (1.0-6.0); RBC 3.85 10^6/uL (3.5-6.1); RED CELL DISTRIBUTION WIDTH 12.8 % (11.5-14.5); WHITE BLOOD COUNT 6.6 10^3/ul (4.5-11.0)
[2017-11-19 12:27] LABS: ALB/GLOB RATIO 1.8 (1.1-1.8); ALBUMIN 4.5 g/dL (3.0-4.8); ALT/SGPT 32 U/L (7-56); AST/SGOT 36 U/L (14-36); BLOOD UREA NITROGEN 10 mg/dL (7-21); CALCIUM 9.8 mg/dL (8.4-10.5); GFR AFRICAN-AMERICAN > 60; GFR NON-AFRICAN AMERICAN > 60; LIPASE 197 U/L (23-300)
[2017-11-19 12:37] LABS: TROPONIN I < 0.01 ng/mL
[2017-11-19 13:10] LABS: URINE BILIRUBIN NEGATIVE (NEGATIVE); URINE BLOOD NEGATIVE (NEGATIVE); URINE GLUCOSE (UA) NEGATIVE (NEGATIVE); URINE LEUKOCYTE ESTERASE NEGATIVE Leu/uL (NEGATIVE); URINE PROTEIN NEGATIVE mg/dL (<30 mg/dL); URINE UROBILINOGEN 0.2 E.U./dL (<1 E.U./dL)
[2017-11-19 13:11] LABS: URINE APPEARANCE CLEAR (CLEAR); URINE COLOR STRAW (YELLOW)
--- NOTE | 2017-11-19 13:33 | CT ---
Date of service: 11/19/2017 PROCEDURE: CT HEAD WITHOUT CONTRAST. HISTORY: dizziness, weakness COMPARISON: None available. TECHNIQUE: Axial computed tomography images were obtained through the head/brain without intravenous contrast. Radiation dose: Total exam DLP = 775 mGy-cm. This CT exam was performed using one or more of the following dose reduction techniques: Automated exposure control, adjustment of the mA and/or kV according to patient size, and/or use of iterative reconstruction technique. FINDINGS: HEMORRHAGE: No intracranial hemorrhage. BRAIN: No mass effect or edema. No atrophy or chronic microvascular ischemic changes. VENTRICLES: Unremarkable. No hydrocephalus. CALVARIUM: Unremarkable. PARANASAL SINUSES: Unremarkable as visualized. No significant inflammatory changes. MASTOID AIR CELLS: Unremarkable as visualized. No inflammatory changes. OTHER FINDINGS: None. IMPRESSION: No acute findings
--- NOTE | 2017-11-19 16:19 | CP.PCM.HP ---
<AngelaSudheer - Last Filed: 11/19/17 16:22> History of Present Illness - History of Present Illness History of Present Illness: Internal Medicine H&P Ms. Cooney is a 52 year old female with a past medical history significant for CML and uterine fibroids who presents with a chief complaint of headache, palpitations and high blood pressure. Patient reports that she awoke this morning and her usual cup of coffee. Afterwards she experienced palpitations and a headache that she describes as an intermittent frontal "discomfort" with no radiation. She denies ever having this before. She decided to call the ambulance not long after so that she could be evaluated further. Upon arrival, EMS found that the patient had a BP of approximately 150/90 which patient reports as above her normal range. Currently she denies any complaints including fevers, chills, headache, chest pain, palpitations, SOB, cough, wheezing, abdominal pain, N/V/D/C, changes in urine output or any numbness/ tingling/weakness of any extremity. In the ED, patient was noted to have stable vital signs and CBC, CMP and UA without any significant abnormalities. She was also noted to have a normal EKG, CT head and chest x-ray. PMH: CML and Uterine Fibroids PSH: Hysterectomy Family History: Denies Social History: Denies any tobacco, alcohol or illicit drug abuse; Drinks one daily cup of coffee; unemployed Allergies: NKDA Home Medications: As per MAR Present on Admission - Present on Admission Any Indicators Present on Admission: No Review of Systems - Review of Systems Review of Systems: As stated in HPI otherwise negative Past Patient History - Tetanus Immunizations Tetanus Immunization: Unknown - Past Medical History & Family History Past Medical History?: Yes - Past Social History Smoking Status: Never Smoked - CARDIAC Hx Cardiac Disorders: No - PULMONARY Hx Respiratory Disorders: No - NEUROLOGICAL Hx Neurological Disorder: No - HEENT Hx Glaucoma: Yes (bilateral eyes) - RENAL Hx Chronic Kidney Disease: No - ENDOCRINE/METABOLIC Hx Endocrine Disorders: No - HEMATOLOGICAL/ONCOLOGICAL Hx Blood Disorders: Yes Hx Leukemia: Yes - INTEGUMENTARY Hx Dermatological Problems: No - MUSCULOSKELETAL/RHEUMATOLOGICAL Hx Musculoskeletal Disorders: No Hx Falls: No - GASTROINTESTINAL Other/Comment: Small Bowel obstruction - GENITOURINARY/GYNECOLOGICAL Hx Genitourinary Disorders: No - PSYCHIATRIC Hx Psychophysiologic Disorder: No Hx Substance Use: No - SURGICAL HISTORY Hx Breast Biopsy: Yes Hx Hysterectomy: Yes Other/Comment: fibroid uterus , bilateral breast cyst removed, benign - ANESTHESIA Hx Anesthesia: No Hx Anesthesia Reactions: No Meds Allergies/Adverse Reactions: Allergies Allergy/AdvReac Type Severity Reaction Status Date / Time No Known Allergies Allergy Verified 04/30/17 01:21 Physical Exam - Constitutional Appears: Non-toxic, No Acute Distress - Head Exam Head Exam: ATRAUMATIC, NORMOCEPHALIC - Eye Exam Eye Exam: Normal appearance - ENT Exam ENT Exam: Mucous Membranes Moist, Normal Exam - Neck Exam Neck exam: Positive for: Normal Inspection - Respiratory Exam Respiratory Exam: Clear to Auscultation Bilateral, NORMAL BREATHING PATTERN. absent: Accessory Muscle Use, Chest Wall Tenderness, Decreased Breath Sounds, Prolonged Expiratory Phase, Rales, Rhonchi, Wheezes, Respiratory Distress, Stridor - Cardiovascular Exam Cardiovascular Exam: REGULAR RHYTHM, RRR, +S1, +S2. absent: Bradycardia, Tachycardia, Clicks, Diastolic murmur, Gallop, Irregular Rhythm, JVD, Rubs, +S4 , Systolic Murmur - GI/Abdominal Exam GI & Abdominal Exam: Normal Bowel Sounds, Soft. absent: Tenderness - Extremities Exam Extremities exam: Positive for: full ROM, normal capillary refill, normal inspection, pedal pulses present. Negative for: calf tenderness, joint swelling , pedal edema, tenderness - Back Exam Back exam: NORMAL INSPECTION - Neurological Exam Neurological exam: Alert, Normal Gait, Oriented x3 - Psychiatric Exam Psychiatric exam: Normal Affect, Normal Mood - Skin Skin Exam: Dry, Intact, Normal Color, Warm Results - Vital Signs Recent Vital Signs: Last Vital Signs Temp 98.0 F 11/19/17 10:39 Pulse 97 H 11/19/17 14:56 Resp 18 11/19/17 14:56 BP 142/88 11/19/17 14:56 Pulse Ox 100 11/19/17 14:56 - Labs Result Diagrams: 11/19/17 11:55 11/19/17 11:55 Assessment & Plan - Assessment and Plan (Free Text) Assessment: 52 year old female with a past medical history significant for CML and uterine fibroids who presents with a chief complaint of headache, palpitations and high blood pressure. In the ED, patient was noted to have stable vital signs and CBC , CMP and UA without any significant abnormalities. She was also noted to have a normal EKG, CT head and chest x-ray. Plan: Patient decided to leave against medical advice shortly after being seen by medical team in ED. All expected benefits and possible risks of doing so were thoroughly explained to the patient with verbalization of agreement prior to patient signing AMA form. Patient seen and case discussed with attending, Dr. Ramirez. Cecilia PGY2 - Date & Time Date: 11/19/17 Time: 16:26 <Elenita Ramirez - Last Filed: 11/19/17 16:55> Results - Vital Signs Recent Vital Signs: Last Vital Signs Temp 98.7 F 11/19/17 16:48 Pulse 67 11/19/17 16:48 Resp 18 11/19/17 16:48 BP 136/71 11/19/17 16:48 Pulse Ox 98 11/19/17 16:48 - Labs Result Diagrams: 11/19/17 11:55 11/19/17 11:55 Attending/Attestation - Attestation I have personally seen and examined this patient.: Yes I have fully participated in the care of the patient.: Yes I have reviewed all pertinent clinical information: Yes Notes (Text): 11/19/17 16:51 52 year old female with past medical history of CML on gleevec who presented with "not feeling well", palpitations, headache and lightheadedness. CT head was negative. EKG and initial troponin were negative. She was being admitted for 24 hrs telemonitoring with serial cardiac enzymes and TFTs however patient signed out AMA. She was explained the risks of signing out AMA. 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 Elenita Ramirez MD Hospitalist.
[2017-11-19 16:49] VITALS: BP 136/71; PULSE 67; TEMP 98.7; O2SAT 98
[2017-11-19 17:15] LABS: T4 10.1 ug/dL (5.5-11.0)
--- NOTE | 2017-11-19 17:50 | CARD ---
APPROVED REPORT Date of service: 11/19/2017 EKG Measurement Heart [id number] <Conclusion> Normal sinus rhythm Normal ECG
== END 2017-11-19 16:52 | disposition left against medical advice (07) ==
LOC: ED 10:22 → UNDOADMOB 14:56 → ERH 14:56
DX: R00.2 Palpitations (principal); R53.1 Weakness; R42 Dizziness and giddiness
CPT/HCPCS: 70450; 71045; 80053; 81001; 81003; 82550; 83615; 83690; 84436; 84443; 84484; 85025; 93005; 99283; J7030